=== PATIENT | female | born 1985 | race Caucasian/White ===

== ENCOUNTER 2018-03-11 16:40 | Emergency (ER) | payer MEDICAID ==
[2018-03-11 18:01] LABS: URINE BLOOD (Dip) POC 3+ (NEGATIVE); URINE GLUCOSE (Dip) POC Negative (NEGATIVE); URINE KETONES (Dip) POC 2+ (NEGATIVE); URINE LEUKOCYTE EST (Dip) POC Negative (NEGATIVE); URINE NITRITE (Dip) POC Negative (NEGATIVE); URINE TOTAL PROTEIN POC Negative (NEGATIVE)
[2018-03-11] MEDS: ACETAMINOPHEN 500 MG TAB PO (19:13)
== END 2018-03-11 20:00 | disposition home or self-care (01) ==
LOC: FTE 16:40
DX: O20.0 Threatened abortion (principal); Z3A.01 Less than 8 weeks gestation of pregnancy
CPT/HCPCS: 36415; 76801; 76817; 81003; 81025; 84702; 99284-25

== ENCOUNTER 2018-03-20 23:38 | Emergency (ER) | payer SELFPAY, MEDICAID | END 2018-03-21 03:59 | disposition left against medical advice (07) | LOC: FTE 23:38 | DX: Z53.21 Procedure and treatment not carried out due to patient leaving prior to being seen by health care provider (principal) ==